=== PATIENT | female | born 1995 | race Caucasian/White ===

== ENCOUNTER 2016-08-29 16:38 | Emergency (ER) | payer OTHER ==
[2016-08-29 16:48] VITALS: BP 112/50; PULSE 90; TEMP 98; BMI 22.4
--- NOTE | 2016-08-29 17:23 | PDOC ---
History of Present Illness - General Stated Complaint: WEAKNESS Time Seen by Provider: 08/29/16 16:54 History Source: Patient - History of Present Illness Associated Symptoms: denies: chest pain, cough, fever/chills, headaches, nausea/ vomiting, shortness of breath, syncope Past History - Past Medical History Allergies/Adverse Reactions: Allergies Allergy/AdvReac Type Severity Reaction Status Date / Time No Known Allergies Allergy Verified 08/29/16 16:48 Home Medications: Ambulatory Orders Vit Calc,Iron,Folic [ Vitamins] 1 each PO DAILY #30 tablet Psychiatric Problems: Yes (eating disorder) - Reproductive History (#): 2 Para: 1 Cervical CA: No Dysfunctional Uterine Bleeding: No Ectopic : No Endometrial CA: No Polycystic Ovaries: No Tubal Ligation: No - Immunization History Immunization Up to Date: Yes - Psycho/Social/Smoking Cessation Hx Anxiety: No Suicidal Ideation: No Smoking History: Current every day smoker Have you smoked in the past 12 months: Yes Number of Cigarettes Smoked Daily: 5 Information on smoking cessation initiated: No 'Breaking Loose' booklet given: 01/10/16 Hx Alcohol Use: No Drug/Substance Use Hx: No Substance Use Type: None Review of Systems - Review of Systems Constitutional: Yes: Weakness. No: Fever ABD/GI: No: Nausea, Vomiting, Abdominal cramping : No: Dysuria Neurological: No: Headache, Dizziness *Physical Exam - Vital Signs Last Vital Signs Temp Pulse Resp BP Pulse Ox 98 F 90 18 112/50 99 08/29/16 16:45 08/29/16 16:45 08/29/16 16:45 08/29/16 16:45 08/29/16 16:45 - Physical Exam General Appearance: Yes: Appropriately Dressed. No: Apparent Distress HEENT: positive: Normal Voice. negative: Scleral Icterus (R), Scleral Icterus ( L) Neck: positive: Supple Respiratory/Chest: negative: Respiratory Distress Gastrointestinal/Abdominal: negative: Tender Integumentary: positive: Dry, Warm Neurologic: positive: Fully Oriented, Alert, Normal Mood/Affect Medical Decision Making - Medical Decision Making 08/29/16 17:20 21-year-old female, (w/ 1 elec AB), ~8 weeks by dates here with fatigue that has been present throughout her . No abdominal pain or vaginal bleed at this time, though was seen in ED approximately 2 weeks ago for vaginal spotting. Was found to have beta of ~24,000 w/ +IUP (gest sac+yolk sac), though no FHR at the time. Denies dysuria, n/v/f/c. Pt has upcoming OB appt in 2 weeks per pt. Pt well monique and stable w/ unremarkable exam. No indication for US at this time. Rx for vit given. To f/u with OB 08/29/16 17:24 *DC/Admit/Observation/Transfer Diagnosis at time of Disposition: Fatigue Qualifiers: Fatigue type: unspecified Qualified Code(s): R53.83 - Other fatigue - Discharge Dispostion Disposition: HOME Condition at time of disposition: Good - Prescriptions Prescriptions: Vit Calc,Iron,Folic [ Vitamins] 1 each PO DAILY #30 tablet - Patient Instructions Printed Discharge Instructions: Managing Symptoms of Additional Instructions: Please follow up with your [employer]PERATOR
== END 2016-08-29 17:32 | disposition home or self-care (01) ==
LOC: JERFT 16:38
DX: R53.83 Other fatigue (principal); F17.210 Nicotine dependence, cigarettes, uncomplicated
CPT/HCPCS: 99281-25

== ENCOUNTER 2017-03-05 02:32 | Emergency (ER) | payer OTHER ==
[2017-03-05 02:41] VITALS: BP 117/79; PULSE 79; TEMP 98.1; BMI 26.4
--- NOTE | 2017-03-05 03:55 | PDOC ---
History of Present Illness - General Chief Complaint: Nausea/Vomiting Stated Complaint: N/V/D Time Seen by Provider: 03/05/17 02:41 - History of Present Illness Initial Comments: This 21-year-old woman, prima , 34 weeks , presents with 1 day history of vomiting after eating solid food. Patient states that she was mildly nauseated throughout the day but was able to tolerate clear liquids by mouth without vomiting. She attempted eating lunch at approximately 12 noon and then another meal at approximately 2 AM. She vomited after each meal, semi- digested food without coffee grounds or blood. She states she is also had lower abdominal tenesmus and soft to loose stools today. There has been no mucus or blood in the stools. No fevers/chills. Patient had mild nausea/ vomiting in first trimester that resolved spontaneously. No other difficulties with the . Past History - Past Medical History Allergies/Adverse Reactions: Allergies Allergy/AdvReac Type Severity Reaction Status Date / Time No Known Allergies Allergy Verified 08/29/16 16:48 Home Medications: Ambulatory Orders Vit Calc,Iron,Folic [ Vitamins] 1 each PO DAILY #30 tablet Psychiatric Problems: Yes (eating disorder) Other medical history: 34 WEEKS - Reproductive History (#): 2 Para: 1 Cervical CA: No Dysfunctional Uterine Bleeding: No Ectopic : No Endometrial CA: No Polycystic Ovaries: No Tubal Ligation: No - Immunization History Immunization Up to Date: Yes - Psycho/Social/Smoking Cessation Hx Anxiety: No Suicidal Ideation: No Smoking History: Never smoked Have you smoked in the past 12 months: Yes Number of Cigarettes Smoked Daily: 5 'Breaking Loose' booklet given: 01/10/16 Hx Alcohol Use: No Drug/Substance Use Hx: No Substance Use Type: None Review of Systems - Review of Systems Able to Perform ROS?: Yes Comments:: 12 point review of systems is negative except for what is noted in the history of present illness *Physical Exam - Vital Signs Last Vital Signs Temp Pulse Resp BP Pulse Ox 98.1 F 79 18 117/79 99 03/05/17 02:39 03/05/17 02:39 03/05/17 02:39 03/05/17 02:39 03/05/17 02:39 - Physical Exam Comments: GENERAL: Young adult female, alert and oriented 3, no acute distress HEAD: Normal with no signs of trauma. EYES: PERRLA, EOMI, sclera anicteric, conjunctiva clear. ENT: Ears normal, nares patent, oropharynx clear without exudates. Dry mucous membranes. NECK: Normal range of motion, supple without lymphadenopathy, JVD, or masses. LUNGS: Breath sounds equal, clear to auscultation bilaterally. No wheezes, and no crackles. HEART:Regular rate and rhythm, normal S1 and S2 without murmur, rub or gallop. ABDOMEN:.normal bowel sounds No guarding,tenderness or rebound.No masses No distention. Gravid uterus to mid epigastrium EXTREMITIES: Normal range of motion, no edema. No clubbing or cyanosis. No erythema, or tenderness. NEUROLOGICAL: Cranial nerves II through XII grossly intact. Normal speech. No focal neurological deficits. MUSCULOSKELETAL: Back non-tender to palpation, no CVA tenderness SKIN: Warm, Dry, normal turgor, no rashes or lesions noted. *DC/Admit/Observation/Transfer Diagnosis at time of Disposition: Gastroenteritis - Discharge Dispostion Disposition: HOME Condition at time of disposition: Stable - Referrals Referrals: STAFF,NOT ON [Primary Care Provider] - - Patient Instructions Printed Discharge Instructions: DI for Viral Gastroenteritis -- Adult Additional Instructions: Continue clear liquids for the next 24 hours Advance diet cautiously Return to ER if you have vomiting after drinking fluids Return to ER if you have high fever or abdominal pain Elevate head at night/avoid high fat diet Avoid T/coffee at night Follow-up with your loader operator supervisor within the next 3-4 days
== END 2017-03-05 04:16 | disposition home or self-care (01) ==
LOC: FER 02:32
DX: O26.893 Other specified pregnancy related conditions, third trimester (principal); K52.9 Noninfective gastroenteritis and colitis, unspecified; Z3A.34 34 weeks gestation of pregnancy
CPT/HCPCS: 99281-25